=== PATIENT | male | born 2000 | race Caucasian/White ===

== ENCOUNTER 2018-05-12 09:54 | Emergency (ER) | payer BC, OTHER ==
[~2018-05-12] VITALS: Ht 182.9 cm; Wt 77.1 kg
[2018-05-12] MEDS ORDERED: AMPDEX5 PO (10:05)
== END 2018-05-12 14:55 | disposition home or self-care (01) ==
LOC: EDBD 09:54 → ER 09:54
DX: F32.9 Major depressive disorder, single episode, unspecified (principal); Z79.899 Other long term (current) drug therapy
CPT/HCPCS: 99284; Q3014

== ENCOUNTER 2018-05-15 11:17 | Emergency (ER) | payer OTHER ==
[~2018-05-15] VITALS: Ht 182.9 cm; Wt 77.1 kg
[~2018-05-15 11:17] MED LIST: AMPDEX5 PO
== END 2018-05-15 11:49 | disposition home or self-care (01) ==
LOC: ER 11:17
DX: F32.9 Major depressive disorder, single episode, unspecified (principal); R45.851 Suicidal ideations; Z79.899 Other long term (current) drug therapy
CPT/HCPCS: 99283